=== PATIENT | female | born 1970 | race Caucasian/White ===

== ENCOUNTER 2016-07-05 10:24 | Emergency (ER) | payer OTHER ==
[2016-07-05 10:40] VITALS: TEMP 98.1
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
[2016-07-05] MEDS ORDERED: ACETAMINOPHEN 325 MG TAB PO ONE (12:47)
[2016-07-05] MEDS ORDERED: ACETAMINOPHEN 325 MG TAB ONE (12:50)
[2016-07-05 13:51] VITALS: BP 119/83; PULSE 65; RESP 18; O2SAT 98
== END 2016-07-05 13:50 | disposition home or self-care (01) ==
DX: S09.90XA Unspecified injury of head, initial encounter (principal); V18.0XXA Pedal cycle driver injured in noncollision transport accident in nontraffic accident, initial encounter; Y99.8 Other external cause status; Y93.89 Activity, other specified

== ENCOUNTER → 2017-06-07 | Outpatient (CLI) | payer OTHER | LOC: FIMAGING 15:34 | PROVIDERS: ATTEND Obstetrics & Gynecology | DX: Z12.31 Encounter for screening mammogram for malignant neoplasm of breast (principal); Z80.3 Family history of malignant neoplasm of breast ==